=== PATIENT | female | born 1985 | race American Indian/Alaskan Native ===

== ENCOUNTER 2018-07-19 12:29 | Emergency (ER) | payer SELFPAY ==
[2018-07-19] MEDS ORDERED: ZOFRAN IV ONE (13:29)
[2018-07-19] MEDS ORDERED: NACL 0.9% 1000 ML 1,000 ML IV ONE (13:29)
[2018-07-19] MEDS ORDERED: BENTYL PO ONE (13:29)
--- NOTE | 2018-07-19 13:29 | Emergency Department Report ---
Blank Doc - Documentation Documentation: Patient via ambulance with nausea , vomitting , sob. denies drug use including marijuana. . Drank 3 shots of brigitte last night. LMP 3 weeks ago. having abdominal pain O: LUQ-Mid upper quadrant TTP Nose: runny nose A/P URI N/V Abdominal pain IVF, zofran labs,Urine, for ua and HCG Screened by medical provider
[2018-07-19] MEDS ORDERED: ZOFRAN ODT PO ONE (13:30)
[2018-07-19] MEDS ORDERED: ZOFRAN ODT ONE (13:31)
[2018-07-19 14:49] LABS: Basophils % (Auto) 0.7 % (0.0-1.8); Eosinophils % (Auto) 0.1 % (0.0-4.3); Hemoglobin 13.7 gm/dl (10.1-14.3); Lymphocytes % (Auto) 13.4 % (13.4-35.0); Mean Corpuscular HGB Conc 34 % (30-34); Mean Corpuscular Hemoglobin 30 pg (28-32); Mean Corpuscular Volume 88 fl (79-97); Monocytes # (Auto) 0.2 K/mm3 (0.0-0.8); Monocytes % (Auto) 2.5 % (0.0-7.3); Platelet Count 316 K/mm3 (140-440); Red Blood Count 4.55 M/mm3 (3.65-5.03); Red Cell Distribution Width 13.8 % (13.2-15.2)
--- NOTE | 2018-07-19 15:05 | Emergency Department Report ---
ED Abdominal Pain HPI - General Chief Complaint: Nausea/Vomiting/Diarrhea Stated Complaint: VOMITING/CHEST PAIN Time Seen by Provider: 07/19/18 13:23 Source: patient Mode of arrival: Wheelchair Limitations: No Limitations - History of Present Illness Initial Comments: Patient comes to the ER this afternoon complaining of abdominal pain. She has a emesis bag and is vomiting on arrival. Patient states that she had 3 shots of liquor last night and woke up sick. Patient denies any drug use. Home medications none Past medical history htn past surgical history fallopian tube removal hernia - Related Data Previous Rx's Medication Instructions Recorded Last Taken Type Ondansetron [Zofran Odt] 4 mg PO Q8HR PRN #10 tab.rapdis 07/19/18 Unknown Rx Allergies Allergy/AdvReac Type Severity Reaction Status Date / Time No Known Allergies Allergy Unverified 07/19/18 12:34 ED Review of Systems ROS: Stated complaint: VOMITING/CHEST PAIN Other details as noted in HPI Comment: All other systems reviewed and negative Constitutional: denies: chills, fever Eyes: denies: eye pain ENT: denies: throat pain Respiratory: denies: cough Cardiovascular: denies: chest pain Endocrine: denies: flushing Gastrointestinal: as per HPI, abdominal pain, nausea, vomiting. denies: diarrhea, constipation, hematemesis Genitourinary: denies: urgency, dysuria Musculoskeletal: denies: back pain Skin: denies: lesions Neurological: denies: headache Psychiatric: denies: anxiety Hematological/Lymphatic: denies: as per HPI ED Past Medical Hx - Past Medical History Previous Medical History?: Yes Hx Hypertension: Yes - Surgical History Past Surgical History?: Yes Additional Surgical History: Hernia repair - Family History Family history: no significant - Social History Smoking Status: Never Smoker Substance Use Type: Alcohol - Medications Home Medications: Home Medications Medication Instructions Recorded Confirmed Last Taken Type Ondansetron [Zofran Odt] 4 mg PO Q8HR PRN #10 tab.rapdis 07/19/18 Unknown Rx ED Physical Exam - General Limitations: No Limitations General appearance: alert - Head Head exam: Present: atraumatic - Eye Eye exam: Present: PERRL - ENT ENT exam: Present: mucous membranes moist - Neck Neck exam: Present: normal inspection - Respiratory Respiratory exam: Present: normal lung sounds bilaterally - Cardiovascular Cardiovascular Exam: Present: regular rate - GI/Abdominal GI/Abdominal exam: Present: soft, guarding, normal bowel sounds. Absent: distended, tenderness - Rectal Rectal exam: Present: deferred - Extremities Exam Extremities exam: Present: normal inspection, full ROM - Back Exam Back exam: Present: normal inspection, full ROM - Neurological Exam Neurological exam: Present: alert, oriented X3 - Psychiatric Psychiatric exam: Present: normal affect, normal mood - Skin Skin exam: Present: warm, dry, intact ED Course Vital Signs 07/19/18 12:51 Temperature 97.4 F L Pulse Rate 63 Respiratory 18 Rate Blood Pressure 152/88 O2 Sat by Pulse 100 Oximetry - Reevaluation(s) Reevaluation #1: 07/19/18 ill and vomiting on arrival to ER medicated with relief abd snt no cva tenderness no vag bleeding or dc no sign medical history ED Medical Decision Making - Lab Data Result diagrams: 07/19/18 14:32 07/19/18 14:32 - Medical Decision Making Vital Signs 07/19/18 12:51 Temperature 97.4 F L Pulse Rate 63 Respiratory 18 Rate Blood Pressure 152/88 O2 Sat by Pulse 100 Oximetry Labs 07/19/18 07/19/18 07/19/18 14:32 14:32 14:32 WBC 7.5 RBC 4.55 Hgb 13.7 Hct 40.0 MCV 88 MCH 30 MCHC 34 RDW 13.8 Plt Count 316 Lymph % (Auto) 13.4 [place] % (Auto) 2.5 Eos % (Auto) 0.1 Baso % (Auto) 0.7 Lymph # 1.0 L [place] # 0.2 Eos # 0.0 Baso # 0.0 Seg Neutrophils % 83.3 H Seg Neutrophils # 6.3 Sodium 145 Potassium 3.7 Chloride 101.5 Carbon Dioxide 23 Anion Gap 24 BUN 6 L Creatinine 0.5 L Estimated GFR > 60 BUN/Creatinine Ratio 12 Glucose 116 H Calcium 10.1 Total Bilirubin 0.40 AST 15 ALT 8 Alkaline Phosphatase 64 Total Protein 9.0 H Albumin 4.7 Albumin/Globulin Ratio 1.1 Lipase 23 Urine Color Urine Turbidity Urine pH Ur Specific [place] Urine Protein Urine Glucose (UA) Urine Ketones Urine Blood Urine Nitrite Urine Bilirubin Urine Urobilinogen Ur Leukocyte Esterase Urine WBC (Auto) Urine RBC (Auto) U Epithel Cells (Auto) Urine Mucus Urine HCG, Qual Plasma/Serum Alcohol < 0.01 07/19/18 18:19 WBC RBC Hgb Hct MCV MCH MCHC RDW Plt Count Lymph % (Auto) [place] % (Auto) Eos % (Auto) Baso % (Auto) Lymph # [place] # Eos # Baso # Seg Neutrophils % Seg Neutrophils # Sodium Potassium Chloride Carbon Dioxide Anion Gap BUN Creatinine Estimated GFR BUN/Creatinine Ratio Glucose Calcium Total Bilirubin AST ALT Alkaline Phosphatase Total Protein Albumin Albumin/Globulin Ratio Lipase Urine Color Yellow Urine Turbidity Clear Urine pH 9.0 H Ur Specific [place] 1.026 Urine Protein >500 Urine Glucose (UA) Neg Urine Ketones 20 Urine Blood Neg Urine Nitrite Neg Urine Bilirubin Neg Urine Urobilinogen < 2.0 Ur Leukocyte Esterase Neg Urine WBC (Auto) 3.0 Urine RBC (Auto) 3.0 U Epithel Cells (Auto) 2.0 Urine Mucus 3+ Urine HCG, Qual Negative Plasma/Serum Alcohol medicated and IVF in ER reported feeling better ua and u preg noted labs noted pt ambulatory and taking po on dc educated on etoh and avoiding this in future. dc home with follow up and instructions when to return to ER Critical care attestation.: If time is entered above; I have spent that time in minutes in the direct care of this critically ill patient, excluding procedure time. ED Disposition Clinical Impression: Vomiting, Hangover effect Disposition: DC-01 TO HOME OR SELFCARE Is pt being admited?: No Does the pt Need Aspirin: No Condition: Stable Instructions: Acute Nausea and Vomiting (ED) Additional Instructions: HYDRATE WELL WITH WATER EAT [place] DAILY FOLLOW UP PCP IF PERSISTS ACTIVITY TOLERATED DIET TOLERATED MED ORDERED Prescriptions: Ondansetron [Zofran Odt] 4 mg PO Q8HR PRN #10 tab.rapdis PRN Reason: Vomiting Referrals: KORINA CAMARILLO MD [Primary Care Provider] - 3-5 Days Time of Disposition: 19:15
[2018-07-19 15:08] LABS: Alanine Aminotransferase 8 units/L (7-56); Albumin 4.7 g/dL (3.9-5); BUN/Creatinine Ratio 12; Blood Urea Nitrogen 6 mg/dL (7-17); Calcium 10.1 mg/dL (8.4-10.2); Hemolysis Index 6; Lipase 23 units/L (13-60)
[2018-07-19] MEDS ORDERED: LIDOCAINE VISCOUS 2% PO ONE (15:10)
[2018-07-19] MEDS ORDERED: ALUM-MAG HYDROX-SIMETH 200-200-20MG/5ML PO ONE (15:10)
[2018-07-19] MEDS ORDERED: HALDOL IV ONE (16:07)
[2018-07-19 19:18] LABS: Bilirubin,Urine NEG (Negative); Blood,Urine NEG (Negative); Color,Urine Yellow (Yellow); Mucus,Urine 3+ /HPF; Urobilinogen,Urine < 2.0 mg/dL (<2.0)
[2018-07-19 19:20] LABS: HCG Qualitative,Urine Negative (Negative); Protein,Urine >500 mg/dL (Negative)
[2018-07-19 19:33] LABS: Amphetamine Screen,Urine PRESUMPTIVE NEGATIVE; Benzodiazepines Screen,Urine PRESUMPTIVE NEGATIVE; Cocaine Screen,Urine PRESUMPTIVE NEGATIVE; Methadone Screen,Urine PRESUMPTIVE NEGATIVE; Opiate Screen,Urine PRESUMPTIVE NEGATIVE
[2018-07-19 19:49] LABS: Cannabinoid Screen,Urine PRESUMPTIVE POSITIVE
[2018-07-19 19:57] VITALS: BP 125/80
== END 2018-07-19 19:57 | disposition home or self-care (01) ==
LOC: ED 12:29
DX: F10.129 Alcohol abuse with intoxication, unspecified (principal); R11.10 Vomiting, unspecified; I10 Essential (primary) hypertension
CPT/HCPCS: 36415; 80053; 80307; 81001; 81025; 83690; 85025; 96361; 96374; 96375; 99284; G0480; J1630; J2405; J7030; 80320; Q0162